=== PATIENT | male | born 1955 | race African-American/Black ===

== ENCOUNTER 2022-03-20 16:20 | Emergency (ER) | payer MEDICARE ==
[2022-03-20] MEDS ORDERED: Oxymetazoline HCl 0.05% ( 15 ML ) ONE (17:46)
== END 2022-03-20 19:05 | disposition home or self-care (01) ==
LOC: CSHERS 16:20
DX: R04.0 Epistaxis (principal); J44.9 Chronic obstructive pulmonary disease, unspecified; I11.0 Hypertensive heart disease with heart failure; I50.9 Heart failure, unspecified; E78.5 Hyperlipidemia, unspecified; G47.30 Sleep apnea, unspecified; Z87.891 Personal history of nicotine dependence
CPT/HCPCS: 99283